=== PATIENT | male | born 1960 | race Caucasian/White ===

== ENCOUNTER → 2016-10-21 | Outpatient (CLI) | payer OTHER ==
--- NOTE | 2016-10-21 10:36 | DIAGNOSTIC IMAGING REPORT ---
PROCEDURE: US ABDOMEN ULTRASOUND-COMPLETE INDICATION: HEP C CARRIER;ABD DISCOMFORT TECHNIQUE: Mix scale and color Doppler sonographic images of the abdomen were obtained without comparison. COMPARISON: Abdominal ultrasound 05/08/2015 FINDINGS: Gallbladder and common duct ( 4.1 mm) are normal. There is mild generalized increased echogenicity of the liver compatible fatty infiltration. No evidence of focal abnormality. Spleen (10.8 cm), pancreas, kidneys (right 10.5 cm; left 10.6 cm), aorta, and inferior vena cava are normal. IMPRESSION: 1. Increased echogenicity of the liver compatible fatty infiltration. 2. Otherwise negative abdominal ultrasound.
== END ==
LOC: US SRH 09:46
DX: K76.0 Fatty (change of) liver, not elsewhere classified (principal)

== ENCOUNTER 2016-12-29 14:12 | Outpatient (CLI) | payer OTHER ==
--- NOTE | 2016-12-29 14:39 | DIAGNOSTIC IMAGING REPORT ---
PROCEDURE: XR CHEST 2 VIEW INDICATION: COUGH PRODUCTIVE OF CLEAR SPUTUM TECHNIQUE: PA and lateral view. COMPARISON: None. FINDINGS: Lungs are clear. Cardiovascular structures are normal. Bony thorax is unremarkable. IMPRESSION: 1. Negative chest.
== END 2016-12-29 23:00 | disposition home or self-care (01) ==
LOC: XR SRH 14:12
DX: R05 Cough (principal)

== ENCOUNTER 2017-03-02 11:38 | Outpatient (CLI) | payer OTHER | END 2017-03-02 23:00 | disposition home or self-care (01) | LOC: LAB SRH 11:38 | DX: R05 Cough (principal) | CPT/HCPCS: 90074; 91832 ==

== ENCOUNTER → 2017-03-08 | Outpatient (CLI) | payer OTHER ==
--- NOTE | 2017-03-08 10:04 | DIAGNOSTIC IMAGING REPORT ---
PROCEDURE: XR CHEST 2 VIEW INDICATION: COUGH TECHNIQUE: PA and lateral view. COMPARISON: Chest x-ray 12/29/2016. FINDINGS: Lungs are clear. Cardiovascular structures are normal. Bony thorax is unremarkable. No significant change. IMPRESSION: 1. Negative chest.
--- NOTE | 2017-03-08 11:04 | DIAGNOSTIC IMAGING REPORT ---
PROCEDURE: MR LUMBAR SPINE W/O CONTRAST INDICATION: HNP LUMBAR TECHNIQUE: T1, T2, and STIR sagittal sequences. T2 and T1 axial sequences. COMPARISON: 05/16/2015 FINDINGS: Alignment and curvature: Normal Vertebral bodies: Mild mixed type 1 into modic changes at the L5-S1 end plates, similar to mildly progressed compared to the prior study. Mild posterior endplate spurring L2-S1. Disc spaces: Moderately severe L5-S1 disc height loss, mildly progressed. Mild L3-4 disc desiccation and height loss, minimally progressed. Mild L4-5 disc desiccation and slight height loss. Spinal canal: Normal. Paraspinal soft tissues: No suspicious mass. L1-2: Normal, stable L2-3: Normal, stable L3-4: Moderate diffuse circumferential disc bulge, similar compared to the prior study. Minimal bilateral foraminal narrowing. No significant change. L4-5: Mild circumferential disc bulge and mild facet arthropathy. Mild left foraminal narrowing, no change. L5-S1: Mild facet arthropathy, right greater than left. Minor broad-based left foraminal disc osteophyte complex and minimal right foraminal disc osteophyte complex. Mild right, and mild to moderate left foraminal narrowing, little change compared to the prior study. IMPRESSION: 1. Mild to moderate left foraminal narrowing secondary to chronic foraminal disc osteophyte complex at the L5-S1 level which likely causes chronic left L5 radiculopathy. 2. Mild bilateral foraminal narrowing L3-4 without significant progression. 3. Mild progression of the L3-4, L4-5, and L5-S1 disc desiccation, height loss, and slight degenerative endplate modic changes.
== END ==
LOC: MRI SRH 08:27 → XR SRH 08:27 → MRI SRH 09:00
DX: M48.07 Spinal stenosis, lumbosacral region (principal); M54.16 Radiculopathy, lumbar region